=== PATIENT | male | born 1980 | race Two or more races ===

== ENCOUNTER 2018-12-17 12:20 | Emergency (ER) | payer SELFPAY ==
[~2018-12-17] VITALS: Ht 172.7 cm; Wt 77.3 kg
[2018-12-17] MEDS ORDERED: LIDOCAINE 5% TRANSDERMAL PATCH TD ONE (13:00)
[2018-12-17] MEDS ORDERED: KETOROLAC TROMETHAMINE 30 MG/ML VIAL IM ONE (13:00)
[2018-12-17 13:30] VITALS: BP 128/88
== END 2018-12-17 13:44 | disposition home or self-care (01) ==
LOC: EMS 12:23
DX: G89.29 Other chronic pain (principal); M54.5 Low back pain; R03.0 Elevated blood-pressure reading, without diagnosis of hypertension; F12.90 Cannabis use, unspecified, uncomplicated; F17.210 Nicotine dependence, cigarettes, uncomplicated
CPT/HCPCS: 96372; 99283; J1885